=== PATIENT | male | born 1995 | race Asian ===

== ENCOUNTER 2019-04-06 07:02 | Outpatient (CLI) | payer OTHER ==
--- NOTE | 2019-04-06 13:58 | MRI Report ---
Reason: LOW BACK PAIN Procedure Date: 04/06/2019 Accession Number: [id number] / [id number] Procedure: MRI - Lumbar Spine W/O CPT Code: FULL RESULT: EXAM: MRI LUMBAR SPINE WITHOUT CONTRAST EXAM DATE: 04/06/2019 07:43 AM. CLINICAL HISTORY: Low back pain. COMPARISON: None. TECHNIQUE: Multiplanar, multisequence T1-weighted and fluid-sensitive sequences of the lumbar spine from T12 to S1 without contrast. Other: None. FINDINGS: Spinal Canal: The conus terminates at T12-L1. The conus medullaris and cauda equina are unremarkable. Alignment: There is mild straightening of the normal lumbar lordotic curvature. No scoliosis, no listhesis. Bone Marrow: Five [id number] lumbar vertebral bodies are assumed. No gross fractures or bone lesions. No bone marrow replacement. Disk Levels/Facets: T12-L1: Unremarkable. L1-L2: Disk dehydration, mild broad-based bulge. Minimal central stenosis, no foraminal stenosis. L2-L3: Minimal disk dehydration, otherwise unremarkable. No stenosis. L3-L4: Unremarkable. L4-L5: Disk dehydration, annular tear and inferiorly directed protrusion/extrusion is present. Series 301 on image 8, series 601 image 14. Mild central stenosis. No foraminal stenosis. Prominent facets. L5-S1: Unremarkable. Musculature: Normal. No edema or fatty atrophy. Other: The partially visualized retroperitoneum is unremarkable. IMPRESSION: 1. Conus medullaris terminates at T12-L1 which is normal. No abnormal cord signal is seen. Mild straightening of the normal lumbar lordotic curvature. No scoliosis or listhesis. 2. L2-L3 shows minimal disk dehydration, otherwise unremarkable. No stenosis. 3. L3-L4 is normal. 4. L4-L5 shows disk dehydration, annular tear and injury directed protrusion/extrusion. No foraminal stenosis. Mild central stenosis. 5. L5-S1 is unremarkable. Comment: The following findings are so common in adults without low back pain that while we report their presence, they must be interpreted with caution and in the context of the clinical situation. (Reference Zeb et al, Spine 2001) Prevalence of findings in patients without low back pain: Disk degeneration (any evidence): 92% Disk desiccation/T2 signal loss: 83% Disk height loss: 56% Disk bulge: 64% Disk protrusion: 32% Annular tear/high intensity zone: 38% RADIA
== END 2019-04-06 07:03 | disposition home or self-care (01) ==
LOC: DI 07:02
PROVIDERS: ATTEND General Practice
DX: M51.26 Other intervertebral disc displacement, lumbar region (principal)
CPT/HCPCS: 72148